=== PATIENT | female | born 1960 | race African-American/Black ===

== ENCOUNTER 2023-06-21 20:54 | Emergency (ER) | payer MEDICARE, OTHER ==
[~2023-06-21] VITALS: Ht 165.1 cm; Wt 65.0 kg
[2023-06-21 21:09] VITALS: O2SAT 97
[2023-06-21] MEDS: HYDROCODONE/ACETAMINOPHEN 5/325MG TABLET PO ONE (23:58)
[2023-06-22 02:01] VITALS: BP 156/90; PULSE 80; RESP 20; TEMP 98.6
== END 2023-06-22 02:03 | disposition home or self-care (01) ==
LOC: ER 20:54
DX: M79.10 Myalgia, unspecified site (principal); R51.9 Headache, unspecified; M54.2 Cervicalgia; I50.9 Heart failure, unspecified; J44.9 Chronic obstructive pulmonary disease, unspecified
CPT/HCPCS: 99284

== ENCOUNTER 2024-12-01 21:22 | Inpatient (IN) | payer MEDICARE, MEDICAID ==
[~2024-12-01] VITALS: Ht 167.6 cm; Wt 69.0 kg
[2024-12-01] MEDS: PANTOPRAZOLE SODIUM 40 MG/VIAL IV ONE (03:30)
[2024-12-01 21:27] VITALS: O2SAT 97
[2024-12-01] MEDS: ASPIRIN 325MG TABLET PO ONE (21:57)
[2024-12-01] MEDS: SODIUM CHLORIDE 0.9% 1,000 ML IV ONE (21:57)
[2024-12-01 22:49] VITALS: BP 114/71; PULSE 73; TEMP 36.44736
[2024-12-01 22:56] LABS: BASOPHILS % 0.2 % (0.0-2.0); EOSINOPHILS % 0.4 % (0.0-5.0); HEMATOCRIT. 29.8 % (36.0-48.0); HEMOGLOBIN. 9.4 g/dL (12.0-16.0); LYMPHOCYTES % 22.9 % (20.0-50.0); MEAN PLATELET VOLUME 7.1 fl (7.4-10.4); MONOCYTES % 8.6 % (2.0-8.0); NEUTROPHILS % 67.9 % (40.0-76.0); PLATELET 221 x1000/uL (130-400); RED BLOOD CELL COUNT 3.44 mill/uL (4.2-5.4); RED CELL DISTRIBUTION WIDTH 14.8 % (11.6-14.6)
[2024-12-01 23:05] LABS: INR 1.1
[2024-12-01 23:06] LABS: CREATININE 1.0 mg/dL (0.6-1.0); TROPONIN I HIGH SENSITIVITY 12 ng/L (3.0-34); UREA NITROGEN BLOOD 9 mg/dL (9-23)
[2024-12-01 23:08] LABS: ASPARTATE AMINOTRANSFERASE 17 IU/L (<34); BILIRUBIN DIRECT < 0.1 mg/dL (<=3.0); BILIRUBIN TOTAL < 0.2 mg/dL (0.1-1.0); PROTEIN TOTAL 6.0 g/dL (6.0-8.3)
[2024-12-01 23:15] VITALS: BP 123/77; PULSE 73; TEMP 36.33624
[2024-12-01] MEDS ORDERED: MAGNESIUM/ALUMINUM HYDROXIDE/SIMETHICONE 30ML UDC PO PRN (23:45)
[2024-12-01] MEDS ORDERED: ONDANSETRON HCL 4MG/2ML INJ IV PRN (23:45)
[2024-12-01] MEDS ORDERED: ACETAMINOPHEN 325MG TABLET PO PRN (23:45)
[2024-12-02] VITALS (7 sets, daily range): BP systolic 111–154; BP diastolic 74–100; PULSE 67–74; RESP 14–23; TEMP 36.44736–36.8; O2SAT 97–100
[2024-12-02] MEDS: SUCRALFATE 1G TABLET PO SCH (06:41)
[2024-12-02] MEDS: MORPHINE SULFATE 2 MG/ML INJ (NOT FOR IM USE) IV PRN (06:55)
[2024-12-02] MEDS: SODIUM CHLORIDE 0.9% 1,000 ML IV SCH (06:57)
[2024-12-02] MEDS: PANTOPRAZOLE SODIUM 40 MG/VIAL IV SCH (08:38)
[2024-12-02 09:28] LABS: CREATININE 0.9 mg/dL (0.6-1.0); UREA NITROGEN BLOOD 10 mg/dL (9-23)
[2024-12-02 09:40] LABS: BASOPHILS % 0.3 % (0.0-2.0); EOSINOPHILS % 0.9 % (0.0-5.0); HEMATOCRIT. 26.8 % (36.0-48.0); HEMOGLOBIN. 8.8 g/dL (12.0-16.0); LYMPHOCYTES % 29.9 % (20.0-50.0); MEAN PLATELET VOLUME 7.2 fl (7.4-10.4); MONOCYTES % 7.2 % (2.0-8.0); NEUTROPHILS % 61.7 % (40.0-76.0); PLATELET 228 x1000/uL (130-400); RED BLOOD CELL COUNT 3.13 mill/uL (4.2-5.4); RED CELL DISTRIBUTION WIDTH 14.8 % (11.6-14.6)
[2024-12-02 12:23] LABS: *AMPHETAMINES SCREEN URINE NEGATIVE (NEGATIVE); *BENZODIAZEPINES SCREEN URINE NEGATIVE (NEGATIVE)
[2024-12-02 12:24] LABS: *BARBITURATES SCREEN URINE NEGATIVE (NEGATIVE); *COCAINE SCREEN URINE NEGATIVE (NEGATIVE); METHADONE URINE SCREEN NEGATIVE (NEGATIVE); OPIATES URINE SCREEN PRESUMPTIVE POSITIVE (NEGATIVE); PHENCYCLIDINE URINE SCREEN NEGATIVE (NEGATIVE)
[2024-12-02 12:25] LABS: CANNABINOID URINE SCREEN NEGATIVE (NEGATIVE); ECSTASY MDMA SCREEN URINE NEGATIVE (NEGATIVE)
[2024-12-02] MEDS: DOCUSATE SODIUM 100MG CAPSULE PO SCH (12:40)
[2024-12-02] MEDS: HYDROCODONE/ACETAMINOPHEN 5/325MG TABLET PO PRN (14:11)
[2024-12-02] MEDS ORDERED: NALOXONE HCL 0.4MG/ML VIAL IV PRN (20:00)
[2024-12-02] MEDS: DIPHENHYDRAMINE 50MG/ML VIAL IV PRN (21:48)
[2024-12-02] MEDS ORDERED: IOHEXOL-350 100 ML BOTTLE ONE (22:42)
[2024-12-03] VITALS (8 sets, daily range): BP systolic 117–168; BP diastolic 71–121; PULSE 62–73; RESP 15–21; TEMP 36.7–37.3; O2SAT 97–100
[2024-12-03 07:16] LABS: BASOPHILS % 0.4 % (0.0-2.0); EOSINOPHILS % 1.3 % (0.0-5.0); HEMATOCRIT. 26.6 % (36.0-48.0); HEMOGLOBIN. 8.6 g/dL (12.0-16.0); LYMPHOCYTES % 41.4 % (20.0-50.0); MEAN PLATELET VOLUME 7.3 fl (7.4-10.4); MONOCYTES % 8.7 % (2.0-8.0); NEUTROPHILS % 48.2 % (40.0-76.0); PLATELET 196 x1000/uL (130-400); RED BLOOD CELL COUNT 3.12 mill/uL (4.2-5.4); RED CELL DISTRIBUTION WIDTH 15.5 % (11.6-14.6)
[2024-12-03 07:17] LABS: CREATININE 0.8 mg/dL (0.6-1.0); UREA NITROGEN BLOOD 9 mg/dL (9-23)
[2024-12-03 15:05] LABS: FOLIC ACID (FOLATE) SERUM 5.79 ng/mL (>5.38)
[2024-12-03 15:07] LABS: VITAMIN B12 SERUM 735 pg/mL (211-911)
[2024-12-03] MEDS ORDERED: NA PHOS,M-B/NA PHOS,DI-BA ENEMA 118ML PR PRN (16:00)
[2024-12-03] MEDS: CLONIDINE 0.1MG TABLET PO PRN (16:15)
[2024-12-03] MEDS: TRAMADOL 50MG TABLET PO PRN (17:08)
[2024-12-04] VITALS: BP 137/93; PULSE 71; RESP 18; TEMP 36.8; O2SAT 96
[2024-12-04 04:00] VITALS: BP 165/99; PULSE 62; RESP 16; TEMP 36.8; O2SAT 99
[2024-12-04 07:27] LABS: BASOPHILS % 0.4 % (0.0-2.0); EOSINOPHILS % 0.9 % (0.0-5.0); HEMATOCRIT. 27.6 % (36.0-48.0); HEMOGLOBIN. 8.9 g/dL (12.0-16.0); LYMPHOCYTES % 40.3 % (20.0-50.0); MEAN PLATELET VOLUME 7.0 fl (7.4-10.4); MONOCYTES % 11.5 % (2.0-8.0); NEUTROPHILS % 46.9 % (40.0-76.0); PLATELET 188 x1000/uL (130-400); RED BLOOD CELL COUNT 3.18 mill/uL (4.2-5.4); RED CELL DISTRIBUTION WIDTH 15.6 % (11.6-14.6)
[2024-12-04 07:37] LABS: CREATININE 0.9 mg/dL (0.6-1.0); UREA NITROGEN BLOOD 7 mg/dL (9-23)
[2024-12-04 08:00] VITALS: BP 192/101; PULSE 67; RESP 21; TEMP 36.8; O2SAT 100
[2024-12-04] MEDS ORDERED: NON FORMULARY MED XX SCH (09:30)
[2024-12-04] MEDS: BISACODYL 5MG TABLET PO SCH (09:31)
[2024-12-04] MEDS: IRON SUCROSE COMPLEX 100 MG/5 ML ML IV SCH (11:09)
[2024-12-04] MEDS: LACTULOSE 20G/30ML UDC PO PRN (11:09)
[2024-12-04] MEDS: HYDRALAZINE 20MG/ML VIAL IV PRN (11:49)
[2024-12-04 12:00] VITALS: BP 165/100; PULSE 68; RESP 12; TEMP 36.8; O2SAT 98
[2024-12-04] MEDS: SORBITOL 70% SOLN 30ML PO NR (13:30)
[2024-12-04] MEDS ORDERED: LACT10SO81 MT (14:29)
[2024-12-04] MEDS: AMLODIPINE 10MG TABLET PO SCH (15:45)
[2024-12-04 16:00] VITALS: BP 180/124; PULSE 78; RESP 20; TEMP 36.7; O2SAT 98
[2024-12-04] MEDS: LABETALOL 5MG/ML 4ML INJ IV PRN (16:10)
[2024-12-04] MEDS: CLONIDINE 0.1MG TABLET PO SCH (17:30)
[2024-12-04] MEDS: HYDRALAZINE HCL 100MG TABLET PO SCH (18:17)
[2024-12-04 20:00] VITALS: BP 163/97; PULSE 89; RESP 18; TEMP 37; O2SAT 100
[2024-12-05] VITALS: BP 132/91; PULSE 75; RESP 20; TEMP 36.7; O2SAT 98
[2024-12-05] MEDS: ZOLPIDEM TARTRATE 5MG TABLET PO PRN (01:43)
[2024-12-05 04:00] VITALS: BP 139/76; PULSE 69; RESP 21; TEMP 37; O2SAT 100
[2024-12-05 08:00] VITALS: BP 160/97; PULSE 83; RESP 19; TEMP 36.3; O2SAT 98
[2024-12-05] MEDS: FOLIC ACID/VITAMIN B COMP W-C TABLET PO SCH (08:42)
[2024-12-05] MEDS ORDERED: FOLIC ACID/VITAMIN B COMP W-C TABLET PO SCH (10:00)
[2024-12-05 11:00] VITALS: BP 124/71; PULSE 83; RESP 22; O2SAT 99
[2024-12-05 11:28] VITALS: BP 124/71; PULSE 83; RESP 20; TEMP 97.3
[2024-12-05] MEDS ORDERED: FOLI0.8T53 PO (12:15)
[2024-12-05] MEDS ORDERED: HYDR100T31 PO (12:15)
[2024-12-05] MEDS ORDERED: SUCR1TAB PO (12:15)
[2024-12-05] MEDS ORDERED: CLON0.1T PO (12:15)
[2024-12-05] MEDS ORDERED: AMLO10TA80 PO (12:15)
== END 2024-12-05 13:10 | disposition home or self-care (01) | DRG 377 ==
LOC: ER 21:22 → 3WST 23:43 → EDBEDREQ 12-02 00:41 → EDBEDREQTM 12-02 00:41 → ENRESERV 12-02 00:53
PROVIDERS: ADMIT Internal Medicine; ATTEND Internal Medicine
PROC: 30233N1 Transfusion of Nonautologous Red Blood Cells into Peripheral Vein, Percutaneous Approach (ICD-10-PCS; principal; 2024-12-01)
DX: K92.1 Melena (principal); I50.33 Acute on chronic diastolic (congestive) heart failure; R57.1 Hypovolemic shock; K56.609 Unspecified intestinal obstruction, unspecified as to partial versus complete obstruction; I11.0 Hypertensive heart disease with heart failure; E11.9 Type 2 diabetes mellitus without complications; D50.0 Iron deficiency anemia secondary to blood loss (chronic); D56.9 Thalassemia, unspecified; E53.8 Deficiency of other specified B group vitamins; E66.9 Obesity, unspecified; E78.5 Hyperlipidemia, unspecified; I25.10 Atherosclerotic heart disease of native coronary artery without angina pectoris; I48.91 Unspecified atrial fibrillation; F41.9 Anxiety disorder, unspecified; J44.9 Chronic obstructive pulmonary disease, unspecified; Z68.24 Body mass index [BMI] 24.0-24.9, adult; Z79.899 Other long term (current) drug therapy; Z90.49 Acquired absence of other specified parts of digestive tract; I25.2 Old myocardial infarction; Z95.5 Presence of coronary angioplasty implant and graft; Z98.84 Bariatric surgery status
CPT/HCPCS: 36415; 36430; 71045; 71275; 74018; 74174; 80048; 80076; 80305; 82270; 82607; 82728; 82746; 83540; 83550; 83880; 84484; 85025; 85044; 85379; 86850; 86900; 86920; 93005; 93306; 93970; 97162; 99285; A4606; J0360; J1200; J2270; J2470; J3490; J7030; P9016; Q9967